=== PATIENT | male | born 1990 | race African-American/Black ===

== ENCOUNTER 2022-10-03 10:12 | Emergency (ER) | payer BC, MEDICAID ==
[~2022-10-03] VITALS: Ht 182.9 cm; Wt 136.0 kg
[2022-10-03 10:34] VITALS: BP 149/89
[2022-10-03] MEDS ORDERED: NAPR-681 MT (13:56)
[2022-10-03] MEDS ORDERED: ACET-2708 MT (13:57)
== END 2022-10-03 14:16 | disposition home or self-care (01) ==
LOC: ER 10:12
DX: S93.601A Unspecified sprain of right foot, initial encounter (principal); X50.1XXA Overexertion from prolonged static or awkward postures, initial encounter; Y93.89 Activity, other specified; Y92.89 Other specified places as the place of occurrence of the external cause; Y99.8 Other external cause status
CPT/HCPCS: 73630; 99283; Z7610